=== PATIENT | male | born 1930 | race Caucasian/White ===

== ENCOUNTER 2017-03-28 11:23 | Emergency (ER) | payer MEDICARE, OTHER ==
[~2017-03-28 11:23] MED LIST: ALLOPURINOL300 MG PO; ASPIR 8181 M1 PO; ASPIR 8181 MG PO; BAYER ASPIRIN325 M1 PO; CENTRUM SILVER1 EAC3 PO; CENTRUM SILVER1 TA PO; CLOPIDOGREL75 M1 PO; CLOPIDOGREL75 MG PO; COUMADIN5 M2 PO; COUMADIN5 MG PO; CULTURELLE1 EAC1 PO; FLAGYL500 M1 PO; FLOMAX0.4 M1 PO; I-CAPS AREDS S1 EACH PO; LEVAQUIN750 M1 PO; LIPITOR10 MG PO; LIPITOR40 MG PO; LISINOPRIL5 MG PO; OCUVITE TABLET1 EACH PO; PLAVIX; SIMVASTATIN40 MG PO; SOTALOL HCL80 MG PO; STOOL SOFTENER100 MG PO; SYNTHROID100 MC1 PO; SYNTHROID100 MCG PO; THYROID MED; TYLENOL325 M1 PO; WARFARIN; XARELTO20 MG PO; [UNRECOGNIZED DRUG - OTHER]
[2017-03-28] MEDS ORDERED: COUMADIN5 M2 PO ×2 (12:18→12:19)
[2017-03-28] MEDS ORDERED: FLOMAX0.4 M1 PO (12:19)
[2017-03-28] MEDS ORDERED: PRINIVIL10 M1 PO (12:20)
[2017-03-28] MEDS ORDERED: SYNTHROID100 MC1 PO (12:20)
[2017-03-28] MEDS ORDERED: LASIX20 M1 PO (12:21)
[2017-03-28] MEDS ORDERED: LIPITOR40 M1 PO (12:22)
[2017-03-28] MEDS ORDERED: ZYLOPRIM300 M1 PO (12:23)
[2017-03-28] MEDS ORDERED: PRESERVISION A1 EAC4 PO (12:27)
[2017-03-28] MEDS ORDERED: CENTRUM SILVER1 EAC7 PO (12:28)
[2017-03-28] MEDS ORDERED: COLACE100 M1 PO (12:29)
[2017-03-28] MEDS ORDERED: ASPIRIN EC81 MG PO (12:29)
[2017-03-28] MEDS ORDERED: TYLENOL325 M2 PO (12:30)
== END 2017-03-28 15:10 ==
LOC: EDMED 11:23
PROC: 0HQEXZZ Repair Left Lower Arm Skin, External Approach (ICD-10-PCS; principal; 2017-03-28)
DX: S51.012A Laceration without foreign body of left elbow, initial encounter (principal); W19.XXXA Unspecified fall, initial encounter; Y92.009 Unspecified place in unspecified non-institutional (private) residence as the place of occurrence of the external cause